=== PATIENT | male | born 1965 | race Caucasian/White ===

== ENCOUNTER 2020-05-28 16:53 | Emergency (ER) | payer BC, OTHER ==
[2020-05-28] MEDS ORDERED: ACETAMINOPHEN 325 MG TABLET (FP) PO ONE (17:12)
[2020-05-28 17:29] VITALS: BP 129/81; PULSE 83; TEMP 98.6; BMI 28.8
[2020-05-28] MEDS ORDERED: ACETAMINOPHEN 500 MG TABLET (FP) ONE (18:24)
== END 2020-05-28 18:52 | disposition home or self-care (01) ==
LOC: JER 16:53
DX: U07.1 COVID-19 (principal)
CPT/HCPCS: 71046-TC-FY; 99284-25; C9803; U0003

== ENCOUNTER 2020-05-29 13:49 | Emergency (ER) | payer OTHER ==
[2020-05-29 13:59] VITALS: BMI 28.8
[2020-05-29] MEDS ORDERED: BAMLANIVIMAB 700 MG in SODIUM CHLORIDE 250 ML IVPB ONE (14:25)
[2020-05-29 17:43] VITALS: BP 123/86; PULSE 73
[2020-05-29 17:45] VITALS: TEMP 98.9
== END 2020-05-29 17:45 | disposition home or self-care (01) ==
LOC: JER 13:49 → JCOVINFU 13:49
DX: U07.1 COVID-19 (principal)
CPT/HCPCS: 99284-25; M0239; Q0239

== ENCOUNTER 2020-06-07 04:07 | Emergency (ER) | payer OTHER ==
[2020-06-07 04:42] VITALS: BMI 28.8
[2020-06-07 05:43] LABS: BASO % 0.3 % (0-2.0); EOS % 2.8 % (0-4.5); HEMATOCRIT 44.1 % (35.4-49); HEMOGLOBIN 15.4 GM/dL (11.7-16.9); LYMPH % 36.2 % (8-40); MCH 29.7 pg (25.7-33.7); MEAN PLT VOLUME 7.9 fl (7.5-11.1); MONO % 9.7 % (3.8-10.2); PLATELET COUNT 249 K/MM3 (134-434); RBC 5.19 M/mm3 (4.00-5.60); WHITE BLOOD COUNT 5.2 K/mm3 (4.0-10.0)
[2020-06-07 05:50] LABS: INR 1.02 (0.83-1.09); PROTHROMBIN TIME (PATIENT) 12.5 SEC (9.7-13.0)
[2020-06-07 05:53] LABS: ACTIVATED PTT 34.9 SECONDS (25.2-36.5)
[2020-06-07 06:12] LABS: CHLORIDE 106 mmol/L (98-107); SODIUM 138 mmol/L (136-145)
[2020-06-07 06:14] LABS: ALBUMIN 3.9 g/dl (3.4-5.0); ANION GAP 4 MMOL/L (8-16); CALCIUM 8.5 mg/dL (8.5-10.1); CO2 29 mmol/L (21-32); GLUCOSE,RANDOM 103 mg/dL (74-106); MAGNESIUM 2.3 mg/dL (1.8-2.4)
[2020-06-07 06:16] LABS: CREATININE 0.9 mg/dL (0.55-1.3); SGOT/AST 13 U/L (15-37); SGPT/ALT 23 U/L (13-61)
[2020-06-07 06:18] LABS: BILIRUBIN,TOTAL 0.4 mg/dL (0.2-1); TOT PROT 7.3 g/dl (6.4-8.2)
[2020-06-07 06:20] LABS: ALK PHOS 93 U/L (45-117)
[2020-06-07 06:39] LABS: N-TERMINAL BNP 21.5 pg/ml (5-125)
[2020-06-07] MEDS ORDERED: FAMOTIDINE 20 MG/50 ML IVPB 20 MG/50 ML MG IVPB ONE ×2 (07:22→07:28)
[2020-06-07] MEDS ORDERED: methylPREDNISolone NA SUCC 125 MG/2 ML VIAL IVPUSH ONE (07:35)
[2020-06-07] MEDS ORDERED: methylPREDNISolone NA SUCC 125 MG/2 ML VIAL ONE (07:51)
[2020-06-07 09:18] VITALS: BP 125/70; PULSE 60; TEMP 98
== END 2020-06-07 09:05 | disposition home or self-care (01) ==
LOC: JER 04:07
PROC: 3E03329 Introduction of Other Anti-infective into Peripheral Vein, Percutaneous Approach (ICD-10-PCS; principal; 2020-06-07)
PROC: 3E033GC Introduction of Other Therapeutic Substance into Peripheral Vein, Percutaneous Approach (ICD-10-PCS; 2020-06-07)
PROC: 3E033GC Introduction of Other Therapeutic Substance into Peripheral Vein, Percutaneous Approach (ICD-10-PCS; 2020-06-07)
PROC: 3E033GC Introduction of Other Therapeutic Substance into Peripheral Vein, Percutaneous Approach (ICD-10-PCS; 2020-06-07)
DX: R05 Cough (principal); R07.81 Pleurodynia; U07.1 COVID-19
CPT/HCPCS: 36415; 71275-TC; 80053; 82550; 83735; 83880; 84484; 85025; 85379; 85610; 85730; 93005; 93010; 99285-25; Q9967